=== PATIENT | male | born 1950 | race Caucasian/White ===

== ENCOUNTER 2024-01-21 13:20 | Outpatient (CLI) | payer MEDICARE ==
[2024-01-21 14:32] LABS: Hematocrit 42.2 % (38.8-50.0); Hemoglobin 14.7 g/dL (13.5-17.5)
[2024-01-21 14:51] LABS: Anion Gap 16 mmol/L (10-20); BUN (Urea Nitrogen) 8 mg/dL (8.4-25.7); Calc. Creatinine Clearance 0 mL/min (70-130); Calcium 9.4 mg/dL (7.8-10.44); Carbon Dioxide 25 mmol/L (23-31); Chloride 103 mmol/L (98-107); Estimated GFR 77; Glucose 282 mg/dL (83-110); Potassium 4.1 mmol/L (3.5-5.1); Sodium 140 mmol/L (136-145)
== END 2024-01-21 13:21 | disposition home or self-care (01) ==
LOC: LABBT 13:20
PROVIDERS: ATTEND Specialist
DX: Z01.818 Encounter for other preprocedural examination (principal); J32.4 Chronic pansinusitis
CPT/HCPCS: 80048; 85014; 85018; 93005; 93010